=== PATIENT | male | born 1950 | race Caucasian/White ===

== ENCOUNTER 2016-06-17 07:18 | Emergency (ER) | payer OTHER ==
[~2016-06-17] VITALS: Ht 175.3 cm; Wt 83.0 kg
--- NOTE | 2016-06-17 07:56 | ED CARDIAC/CP/PALPITATIONS ---
History of Present Illness General Chief Complaint: Chest Pain Stated Complaint: CP,DIFF BREATHING, Source: patient, old records Exam Limitations: no limitations Vital Signs & Intake/Output Vital Signs & Intake/Output Vital Signs Date Time Temp Pulse Resp B/P B/P Pulse O2 O2 Flow FiO2 Mean Ox Delivery Rate 06/17 1205 100.2 74 20 111/62 96 Room Air 06/17 1112 98.9 92 18 94 Room Air 06/17 0914 100.4 90 125/55 06/17 0814 100.2 92 22 155/66 96 Room Air 06/17 0801 96 Room Air 06/17 0730 99.8 90 20 174/72 94 Room Air Allergies Coded Allergies: NO KNOWN ALLERGIES (12/14/10) Triage Note: PT TO ED C/O CHEST PAIN AND DIFF BREATHING SINCE LAST NIGHT. STATES HE HAS HAD URI S/S X 3-4 DAYS. LAST NIGHT PT BEGAN TO FEEL SOB WITH C/P THAT COMES AND GOES. THIS AM PT STATES PAIN RADIATED TO HIS JAW. H/O 2 CARDIAC STENTS. ADJUNCT PHYSICS INSTRUCTOR IS DR COSTELLO. EKG DONE. NO OBVIOUS RESP DISTRESS NOTED. Triage Nurses Notes Reviewed? yes Aspirin Today: 325 mg x 1, provided by ED HPI: This is a 66 yo male with PMH of NSTEMI in 2010 s/p 2 stents in LCA and circumflex (?), hypertension who comes in with CC of CP. He states that he has been feeling "lousy" for the past 3 days. He endorses some "throat pain," subjective fevers, and congestion. Denies cough and SOB. He states that chest pain radiates to jaw, not to l. arm, and is a 2/10 pressure like sensation mid- sternum. He states this pain feels different than his previous episode of ACS. Stents placed by Dr. Contreras at [place]; he follows with Dr. Costello at [place]. Last appt with bellows assembler was apparently just over a week ago and pt states that he was informed he was in normal health. Meds: Clopidogrel, statin, metoprolol and ASA. (LAURA CAMPBELL,[facility]) Reconcile Medications Ascorbate Calcium (Vitamin C) 500 MG TABLET 1 TAB PO DAILY VITAMIN SUPPORT ( Reported) Aspirin (Aspirin*) 81 MG TAB.CHEW 1 TAB PO DAILY HEART HEALTH (Reported) Atorvastatin Calcium (Lipitor) 80 MG TABLET 1 TAB PO QPM CHOLESTEROL ( Reported) Clopidogrel Bisulfate (Clopidogrel) 75 MG TABLET 1 TAB PO QPM BLOOD THINNER ( Reported) Metoprolol Succ XL (Toprol XL) 25 MG TAB 0.5 TAB PO QPM HEART (Reported) Multivitamin (Daily Multiple Vitamin) 1 EACH TABLET 1 TAB PO DAILY VITAMIN SUPPORT (Reported) Penicillin V Potassium 500 MG TABLET 1 TAB PO BID strep pharyngitis Penicillin V Potassium 500 MG TABLET 1 TAB PO BID pharyngitis (DEJON GLORIA DO) Past History Travel History Traveled to [place] past 21 day No Medical History Cardiovascular: CAD, borderline htn Surgical History Surgical History: STENT PLACEMENT Psychosocial History Who do you live with Sister What is your primary language Cuban Tobacco Use: Never used ETOH Use: denies use Illicit Drug Use: denies illicit drug use Family History Comment: Mom with CHF and dad CAD Hx Contributory? Yes (MUNA SANCHEZ MD) Medical History Any Pertinent Medical History? see below for history (DEJON GLORIA DO) Review of Systems Review of Systems Constitutional: Reports: chills, diaphoresis, fever, malaise, weakness. Denies: unexplained weight loss. EENTM: Reports: throat pain. Denies: blurred vision, double vision, hearing changes, nasal pain. Respiratory: Denies: cough, hemoptysis, orthopnea, short of breath, sputum production, wheezing. Cardiovascular: Reports: chest pain. Denies: edema, palpitations. GI: Reports: no symptoms. Genitourinary: Reports: no symptoms. Musculoskeletal: Denies: back pain, joint pain. Skin: Reports: no symptoms. (MUNA SANCHEZ MD) Physical Exam Physical Exam General Appearance: well developed/nourished, no apparent distress, alert, awake Head: atraumatic, normal appearance Eyes: Bilateral: normal appearance, PERRL, EOMI. Ears, Nose, Throat: SLIGHTLY ERYTHMATOUS PHARYNX. NO EXUDATES Neck: normal inspection, full range of motion Respiratory: normal breath sounds, crackles Cardiovascular: regular rate/rhythm Gastrointestinal: soft, non-tender Extremities: normal inspection Core Measures ACS in differential dx? Yes ASA ordered for poss ACS? Yes-ordered (MUNA SANCHEZ MD) Core Measures Severe Sepsis Present: No Septic Shock Present: No (DEJON GLORIA DO) Progress Differential Diagnosis: CHF/pulm edema, unstable angina, STREP THROAT Plan of Care: Orders Procedure Date/time Status Regular Diet 06/17 L Active EKG 06/17 1600 Active TROPONIN LEVEL 06/17 1200 Complete EKG 06/17 1200 Active RAPID VIRAL INFLUENZA A 06/17 812 Active THROAT CULTURE W/QUICK STREP 06/17 812 Complete BLOOD CULTURE 06/17 801 Active Telemetry/Cement Based Materials Pump Tender 06/17 075 Active TROPONIN LEVEL 06/18 747 Complete MAGNESIUM 06/18 747 Complete COMPREHENSIVE METABOLIC PANEL 06/18 747 Complete CHOLESTEROL 06/18 747 Complete CBC WITHOUT DIFFERENTIAL 06/18 747 Complete EKG 06/18 719 Active Current Medications Sig/Hesham Start time Last Medication Dose Stop Time Status Admin Penicillin V 500 MG BID 06/17 1000 UNVr 06/17 Potassium 1041 (Pen V K 250MG. Tablet) Acetaminophen 650 MG Q4P PRN 06/17 0845 AC 06/17 (Tylenol) 1118 Amoxicillin 500 MG ONCE ONE 06/17 899 CAN (Amoxil) 06/17 900 Laboratory Tests 06/17/16 1200: Troponin I < 0.01 06/17/16 0757: Anion Gap 10, Estimated GFR > 60, BUN/Creatinine Ratio 17.8, Glucose 100 H, Calcium 9.0, Magnesium 1.7, Total Bilirubin 1.2, AST 47, ALT 57, Alkaline Phosphatase 90, Troponin I < 0.01, Total Protein 7.1, Albumin 4.3, Globulin 2.8, Albumin/Globulin Ratio 1.5, Cholesterol 164, CBC w Diff MAN DIFF ORDERED, RBC 5.06, MCV 86.0, MCH 28.7, RDW 14.1, MPV 8.5, Gran % 90.5 H, Lymphocytes % 4.0 L, Monocytes % 4.0, Eosinophils % 1.5, Basophils % 0 L, Absolute Granulocytes 11.0 H, Segmented Neutrophils 89 H, Band Neutrophils 4, Absolute Lymphocytes 0.5 L, Lymphocytes 5 L, Monocytes 1 L, Absolute Monocytes 0.5, Eosinophils 1, Absolute Eosinophils 0.2, Absolute Basophils 0, Platelet Estimate ADEQUATE, Normocytic RBCs VERIFIED, Normochromic RBCs VERIFIED, PUBS MCHC 33.4 Microbiology 06/18 819 BLOOD: Blood Culture - RECD 06/17 812 NASOPHARYN: Influenza Virus A & B Rapid Smear - ORD 06/17 0810 BLOOD: Blood Culture - RECD Radiology Impression: With some patchy inflitrates sugesting early pna vs atelactasis Initial ED EKG: NSR Prior EKG: unchanged Comments: 8:19am- Pt has Tmax 100.2; Wbc 12.2. He has 2/10 cp. CXR with some possible inflitrates. Pending troponin, labs etc. 8:52am- First troponin negative. Throat swab positive for Beta group strep A. 9:05am- Spoke with Dr. Costello who suggested doing a second troponin to r/o ACS. If negative will f/u with Dr. Costello in one week for possible outpatient stress test. (LAURA CAMPBELL,MUNA) Departure Departure Condition: Stable Referrals: NICOLLE DE LA ROSA MD (PCP/Family) Departure Forms: Customer Survey General Discharge Information (LAURA CAMPBELL,MUNA) Departure Disposition: STILL A PATIENT Clinical Impression Primary Impression: Chest pain Secondary Impressions: Strep pharyngitis Prescriptions: Current Visit Scripts Penicillin V Potassium 1 TAB PO BID #20 TAB Penicillin V Potassium 1 TAB PO BID #20 TAB Resident Co-Sign Statement Statement: ED Attending supervision documentation- [X] I saw and evaluated the patient. I have also reviewed all the pertinent lab results and diagnostic results. I agree with the findings and the plan of care as documented in the Resident's documentation. [] I have reviewed the ED Record and agree with the Resident's documentation. [] Additions or exceptions (if any) to the Resident's note and plan are summarized below: [] 06/17/16 I have seen and personally examined the patient and I agree with the resident's evaluation. He had chest pain that's been intermittent over the past 72 hours. Currently he had 2 out of 10 pain in the Emergency Department. He also has a cough and low-grade fever. His quick strep was positive. His EKG has no significant change from the old tracing. His bellows assembler Dr. Costello was consulted and we are getting serial troponins and EKG. 1 PM No chest pain at this time. Repeat EKG identical to hold. Serial troponin is nondetectable. Chest x-ray shows atelectasis. Quick strep was positive. He will follow-up with Dr. Costello in 72 hours and take the penicillin as directed (DEJON GLORIA DO) Critical Care Note Critical Care Note Critical Care Time: non-applicable (DEJON GLORIA DO)
[2016-06-17 08:01] LABS: ABSOLUTE BASOPHIL COUNT 0 /CUMM (0.0-0.2); ABSOLUTE EOSINOPHIL COUNT 0.2 /CUMM (0.0-0.7); ABSOLUTE LYMPH COUNT 0.5 /CUMM (1.2-3.4); ABSOLUTE MONOCYTE COUNT 0.5 /CUMM (0.10-0.60); BASOPHIL % 0 % (0.0-2.0); EOSINOPHIL % 1.5 % (0-5); GRANULOCYTE % 90.5 % (42.2-75.2); HEMATOCRIT 43.5 % (42-52); MEAN CORPUSCULAR HGB 28.7 PG (27.0-31.0); MEAN CORPUSCULAR HGB CONC 33.4 G/DL (33.0-37.0); MEAN PLATELET VOLUME 8.5 FL (7.4-10.4); PLATELET COUNT 166 /CUMM (130-400); RBC DISTRIBUTION WIDTH 14.1 % (11.5-14.5); RED BLOOD CELL CT 5.06 /CUMM (4.70-6.10); WHITE BLOOD CELL COUNT 12.2 /CUMM (4.8-10.8)
[2016-06-17] MEDS ORDERED: CLOPIDOGREL75 M1 PO (08:06)
[2016-06-17] MEDS ORDERED: ASPIRIN81 M4 PO (08:07)
[2016-06-17] MEDS ORDERED: LIPITOR80 M1 PO (08:07)
[2016-06-17] MEDS ORDERED: TOPROL XL25 M1 PO (08:07)
[2016-06-17] MEDS ORDERED: DAILY MULTIPLE1 EACH PO (08:08)
[2016-06-17] MEDS ORDERED: VITAMIN C500 M6 PO (08:08)
--- NOTE | 2016-06-17 08:14 | RADIOLOGY REPORT ---
EXAMINATION: XR PORTABLE CHEST CLINICAL INFORMATION: Chest pain. Shortness of breath COMPARISON: 12/14/2010 TECHNIQUE: Portable frontal view of the chest was obtained. FINDINGS: Lung volumes are low. There is mild bibasilar atelectasis with a few patchy opacities are present within the left midlung and left lung base. Cardiac and mediastinal contours are normal. Pulmonary vasculature is unremarkable. No pleural effusion or pneumothorax. Osseous structures are normal. IMPRESSION: Mild bibasilar atelectasis. Subtle patchy opacities in the left midlung and left lung base which could be due to early pneumonia or additional atelectasis. Follow-up radiographs are advised to verify resolution.
[2016-06-17] MEDS ORDERED: PENICILLIN V P500 M1 PO ×2 (11:44→12:58)
[2016-06-17 12:05] VITALS: BP 111/62
== END 2016-06-17 13:30 ==
LOC: ERH 07:18
PROVIDERS: Student in an Organized Health Care Education/Training Program
DX: R07.9 Chest pain, unspecified (principal); J02.0 Streptococcal pharyngitis
CPT/HCPCS: 87040; 87804; 87804-59; 93005; 93010